=== PATIENT | female | born 1940 | race Caucasian/White ===

== ENCOUNTER 2021-07-05 09:33 | Emergency (ER) | payer MEDICARE, OTHER ==
[2021-07-05] MEDS ORDERED: CEPHALEXIN500 M1 PO (17:54)
[2021-07-05] MEDS ORDERED: HYDROCODON-ACE1 EAC4 PO (17:56)
[2021-07-05] MEDS ORDERED: IBUPROFEN800 MG PO (17:56)
[2021-07-12] MEDS ORDERED: HYDROCODON-ACE1 EAC4 PO (08:11)
== END 2021-07-05 17:40 | disposition home or self-care (01) ==
LOC: ER1 09:33
DX: S52.502A Unspecified fracture of the lower end of left radius, initial encounter for closed fracture (principal); S52.602A Unspecified fracture of lower end of left ulna, initial encounter for closed fracture; S61.512A Laceration without foreign body of left wrist, initial encounter; S63.005A Unspecified dislocation of left wrist and hand, initial encounter; I11.9 Hypertensive heart disease without heart failure; Z79.82 Long term (current) use of aspirin; Z91.040 Latex allergy status; Z88.8 Allergy status to other drugs, medicaments and biological substances; Z23 Encounter for immunization; W10.9XXA Fall (on) (from) unspecified stairs and steps, initial encounter; Y92.009 Unspecified place in unspecified non-institutional (private) residence as the place of occurrence of the external cause
CPT/HCPCS: 25605; 70450; 71045; 72100; 72125; 73060; 73080; 73090; 73100; 73110; 73590; 90471; 90714; 96374; 96375; 99152; 99284; J0690; J2270; J2405; J2704